=== PATIENT | female | born 1980 | race Two or more races ===

== ENCOUNTER 2017-07-15 16:35 | Emergency (ER) | payer OTHER ==
[~2017-07-15] VITALS: Ht 154.9 cm; Wt 58.1 kg
== END 2017-07-15 21:45 | disposition home or self-care (01) ==
LOC: ER 16:35
DX: K59.09 Other constipation (principal); K57.90 Diverticulosis of intestine, part unspecified, without perforation or abscess without bleeding

== ENCOUNTER 2018-11-05 10:34 | Day surgery (SDC) | payer OTHER | END 2018-11-05 18:25 | disposition home or self-care (01) | LOC: AMB-ENDOS 10:34 → ADM 11-09 10:15 | DX: K57.32 Diverticulitis of large intestine without perforation or abscess without bleeding (principal); K64.1 Second degree hemorrhoids ==

== ENCOUNTER 2021-06-14 21:24 | Inpatient (IN) | payer OTHER ==
[~2021-06-14] VITALS: Ht 154.9 cm; Wt 59.0 kg
[2021-06-19] MEDS ORDERED: INTESTINEX680 M2 PO (13:07)
[2021-06-19] MEDS ORDERED: METRONIDAZOLE500 MG PO (13:07)
[2021-06-19] MEDS ORDERED: LEVOFLOXACIN750 MG PO (13:07)
[2021-06-19] MEDS ORDERED: PEPCID AC20 MG PO (13:07)
== END 2021-06-19 14:16 | disposition home or self-care (01) | DRG 392 ==
LOC: ER 21:24 → SEC-K 06-15 10:54 → SURH 06-15 10:54 → SURG 06-17 09:45
PROVIDERS: ADMIT Internal Medicine Geriatric Medicine; ATTEND Internal Medicine Geriatric Medicine
PROC: BW21YZZ Computerized Tomography (CT Scan) of Abdomen and Pelvis using Other Contrast (ICD-10-PCS; principal; 2021-06-14)
PROC: BU4CZZZ Ultrasonography of Uterus and Ovaries (ICD-10-PCS; 2021-06-15)
DX: K57.32 Diverticulitis of large intestine without perforation or abscess without bleeding (principal); L03.114 Cellulitis of left upper limb; T82.7XXA Infection and inflammatory reaction due to other cardiac and vascular devices, implants and grafts, initial encounter; K59.00 Constipation, unspecified; Z20.822 Contact with and (suspected) exposure to COVID-19; R10.32 Left lower quadrant pain

== ENCOUNTER 2021-11-14 10:30 | Inpatient (IN) | payer OTHER ==
[~2021-11-14] VITALS: Ht 154.9 cm; Wt 59.0 kg
[~2021-11-14 10:30] MED LIST: INTESTINEX680 M2 PO; LEVOFLOXACIN750 MG PO; METRONIDAZOLE500 MG PO; PEPCID AC20 MG PO
[2021-11-19] MEDS ORDERED: INTESTINEX680 M1 (08:57)
[2021-11-19] MEDS ORDERED: OPTIVE EYE DROP15 ML (08:57)
[2021-11-19] MEDS ORDERED: PEPCID AC20 MG (08:57)
[2021-11-19] MEDS ORDERED: FLUOROMETHOLONE5 ML (08:57)
== END 2021-11-22 10:16 | disposition home or self-care (01) | DRG 330 ==
LOC: O/R 11-19 06:00 → SURG 11-19 10:30 → SURH 11-19 11:36 → SURG 11-19 14:30
PROVIDERS: ADMIT Colon & Rectal Surgery; ATTEND Colon & Rectal Surgery
PROC: 0DTN4ZZ Resection of Sigmoid Colon, Percutaneous Endoscopic Approach (ICD-10-PCS; 2021-11-19)
PROC: 0DJD8ZZ Inspection of Lower Intestinal Tract, Via Natural or Artificial Opening Endoscopic (ICD-10-PCS; 2021-11-19)
PROC: 0DBP4ZZ Excision of Rectum, Percutaneous Endoscopic Approach (ICD-10-PCS; principal; 2021-11-19 14:30)
DX: K57.32 Diverticulitis of large intestine without perforation or abscess without bleeding (principal); K92.1 Melena; Z20.822 Contact with and (suspected) exposure to COVID-19